=== PATIENT | male | born 1975 | race Caucasian/White ===

== ENCOUNTER 2018-12-31 18:31 | Observation (INO) | payer OTHER ==
[~2018-12-31] VITALS: Ht 182.9 cm; Wt 109.0 kg
--- NOTE | 2018-12-31 18:40 | ED.ADGEN ---
Past History Past Medical History: Alcoholism, Anxiety, Bipolar, Depression, GERD, Other Alcohol Use: Heavy Adult General Chief Complaint Chief Complaint ".. I was sober 7 to 8 months.. but I started drinking again.. I need to get some help... I did consume 1/2 gallon or so... of Volka today..." [facility] HPI Patient is a 43 year old male who presents with above hx and complaints of alcohol abuse. Pt. reportedly off alcohol 7-8 months before resumption of heavy use the last 7 days. Pt. has consumed 5th a day of Volka. Pt. Drank a 1/2 gallon Volka today. Patient has had intermittent hospitalizations for his alcohol abuse January 2017 at [facility] ,June 2017 at [facility], 2017 [facility], 04/02 at [facility] . Has follow at [facility]. Patient has had meds Abilify, trazadone, depakote, remeron, miralax. meloxicam, naltrxone- (currently on none of these meds). Pt. does not know of any trigger for his resumption of alcohol use. No hx of prior alcohol withdrawal seizures. Pt. requesting in pt. tx.. Follows with Dr. James Pelaez Review of Systems Review of Systems Constitutional: Denies fever or chills [] Eyes: Denies change in visual acuity, redness, or eye pain [] HENT: Denies nasal congestion or sore throat [] Respiratory: Denies cough or shortness of breath [] Cardiovascular: No additional information not addressed in [facility] [] GI: complaints of epigastric abdominal pain, nausea, vomiting. Denies, bloody stools or diarrhea [] : Denies dysuria or hematuria [] Musculoskeletal: Denies back pain or joint pain [] Integument: Denies rash or skin lesions [] Neurologic: Denies headache, focal weakness or sensory changes []Tremors. Endocrine: Denies polyuria or polydipsia [] All other systems were reviewed and found to be within normal limits, except as documented in this note. Family History Family History Currently deferred by patient Current Medications Current Medications Current Medications Medications (Trade) Dose Ordered Sig/Nathaniel Start Time Stop Time Status Last Admin Dose Admin Acetaminophen (Tylenol) 500 mg 1X ONCE 12/31/18 19:45 12/31/18 19:46 DC 12/31/18 19:33 500 MG Famotidine (Pepcid Vial) 20 mg STK-MED ONCE 12/31/18 20:53 12/31/18 20:54 DC Lactated Ringer's 1,000 ml @ 1,000 mls/hr 1X ONCE 12/31/18 21:00 12/31/18 21:59 DC 12/31/18 20:55 1,000 MLS/HR Magnesium Sulfate 50 ml @ 25 mls/hr 1X ONCE 12/31/18 20:00 12/31/18 21:59 DC 12/31/18 20:12 25 MLS/HR Multivitamins/ Minerals 10 ml/ Folic Acid 1 mg/ Thiamine HCl 100 mg/Lactated Ringer's 1,011.2 ml @ 1,011.2 mls/hr 1X ONCE 12/31/18 19:15 12/31/18 20:14 DC 12/31/18 19:15 1,011.2 MLS/HR Ondansetron HCl (Zofran) 8 mg 1X ONCE 12/31/18 21:00 12/31/18 21:01 DC 12/31/18 20:55 8 MG See nursing for home meds Allergies Allergies Allergies Coded Allergies Type Severity Reaction Last Updated Verified No Known Drug Allergies 12/31/18 No Physical Exam Physical Exam Constitutional: In acute emotional distress, intoxicated in appearance. [] HENT: Normocephalic, atraumatic, bilateral external ears normal, oropharynx moist, no oral exudates, nose normal. [] Eyes: PERRLA, EOMI, conjunctiva injected, no discharge. [] Neck: Normal range of motion, no tenderness, supple, no stridor. [] Cardiovascular: Tachycardia Heart rate regular rhythm, no murmur [] Lungs & Thorax: Bilateral breath sounds equal at apex on auscultation [] Abdomen: Bowel sounds normal, soft, mild epigastric tenderness, no masses, no pulsatile masses. Active nausea and vomiting. Skin: Warm, dry, no erythema, no rash. [] Back: No tenderness, no CVA tenderness. [] Extremities: No tenderness, no cyanosis, no clubbing, ROM intact, no edema. [] Neurologic: Alert and oriented X 3, normal motor function, normal sensory function, no focal deficits noted. []Ambulatory with wide gait. Tremors. Psychologic: Affect anxious, tearful, judgement appears to have insight to his addiction, mood depressed. [] Current Patient Data Vital Signs Vital Signs Date Time Temp Pulse Resp B/P (MAP) Pulse Ox O2 Delivery O2 Flow Rate FiO2 12/31/18 20:48 114 18 141/102 (115) 95 Room Air 12/31/18 18:31 98.9 Lab Results Laboratory Tests Test 12/31/18 18:44 12/31/18 19:00 White Blood Count 11.9 x10^3/uL (4.0-11.0) H Red Blood Count 5.55 x10^6/uL (4.30-5.70) Hemoglobin 18.2 g/dL (13.0-17.5) H Hematocrit 53.6 % (39.0-53.0) H Mean Corpuscular Volume 97 fL (79-100) Mean Corpuscular Hemoglobin 33 pg (25-35) Mean Corpuscular Hemoglobin Concent 34 g/dL (31-37) Red Cell Distribution Width 13.1 % (11.5-14.5) Platelet Count 189 x10^3/uL (140-400) Neutrophils (%) (Auto) 62 % (31-73) Lymphocytes (%) (Auto) 34 % (24-48) Monocytes (%) (Auto) 3 % (0-9) Eosinophils (%) (Auto) 0 % (0-3) Basophils (%) (Auto) 1 % (0-3) Neutrophils # (Auto) 7.4 x10^3uL (1.8-7.7) Lymphocytes # (Auto) 4.0 x10^3/uL (1.0-4.8) Monocytes # (Auto) 0.4 x10^3/uL (0.0-1.1) Eosinophils # (Auto) 0.0 x10^3/uL (0.0-0.7) Basophils # (Auto) 0.1 x10^3/uL (0.0-0.2) Prothrombin Time 11.0 SEC (9.4-11.4) Prothrombin Time INR 1.1 (0.9-1.1) PTT 28 SEC (23-33) Sodium Level 142 mmol/L (136-145) Potassium Level 4.0 mmol/L (3.5-5.1) Chloride Level 99 mmol/L (98-107) Carbon Dioxide Level 21 mmol/L (21-32) Anion Gap 22 (6-14) H Blood Urea Nitrogen 14 mg/dL (8-26) Creatinine 0.8 mg/dL (0.7-1.3) Estimated GFR (Cockcroft-Gault) 105.0 Glucose Level 93 mg/dL (70-99) Calcium Level 9.1 mg/dL (8.5-10.1) Magnesium Level 1.7 mg/dL (1.8-2.4) L Total Bilirubin 4.5 mg/dL (0.2-1.0) H Direct Bilirubin 0.9 mg/dL (0.0-0.2) H Aspartate Amino Transferase (AST) 43 U/L (15-37) H Alanine Aminotransferase (ALT) 51 U/L (16-63) Alkaline Phosphatase 71 U/L (46-116) Creatine Kinase 137 U/L (39-308) Troponin I Quantitative < 0.017 ng/mL (0-0.055) AP-Hnp-L-Type Natriuretic Peptide < 5 pg/mL (0-124) Total Protein 8.3 g/dL (6.4-8.2) H Albumin 4.9 g/dL (3.4-5.0) Lipase 176 U/L (73-393) Salicylates Level < 0.2 mg/dL (2.8-20.0) L Salicylate Last Dose Date Unknown Salicylate Last Dose Time Unknown Acetaminophen Level < 2 mcg/mL (10-30) L Acetaminophen Last Dose Date Unknown Acetaminophen Last Dose Time Unknown Valproic Acid Level < 3 mcg/mL (50-100) L Valproic Acid Last Dose Date 04/26/1111 Valproic Acid Last Dose Time 1111 Ethyl Alcohol Level 292 mg/dL (0-10) H Urine Collection Type Unknown Urine Color Shara Urine Clarity Clear Urine pH 5.5 Urine Specific [place] 1.025 Urine Protein >100 mg/dl (NEG-TRACE) Urine Glucose (UA) Neg mg/dL (NEG) Urine Ketones (Stick) >=160 mg/dL (NEG) Urine Blood Small (NEG) Urine Nitrite Neg (NEG) Urine Bilirubin Neg (NEG) Urine Urobilinogen Dipstick 1 mg/dL (0.2 mg/dL) Urine Leukocyte Esterase Neg (NEG) Urine RBC Occ /HPF (0-2) Urine WBC 0 /HPF (0-4) Urine Squamous Epithelial Cells Occ /LPF Urine Bacteria 0 /HPF (0-FEW) Urine Opiates Screen Neg (NEG) Urine Methadone Screen Neg (NEG) Urine Barbiturates Neg (NEG) Urine Phencyclidine Screen Neg (NEG) Urine Amphetamine/Methamphetamine Neg (NEG) Urine Benzodiazepines Screen Neg (NEG) Urine Cocaine Screen Neg (NEG) Urine Cannabinoids Screen Neg (NEG) Urine Ethyl Alcohol Pos (NEG) EKG EKG My interpretation of EKG shows a sinus tachycardia and 10 bpm. Left axis deviation. Mild fascicular block. No findings acute STEMI of contralateral changes.[] Radiology/Procedures Radiology/Procedures I interpretation chest x-ray shows no acute cardiopulmonary findings. No obvious free air under diaphragm. Course & Med Decision Making Course & Med Decision Making Pertinent Labs and Imaging studies reviewed. (See chart for details) Discussed presentation, testing and tx. plan with Dr. Hernadez. Pt. admitted to Dr. Hernadez, for further tx and evaluation. [] Final Impression Final Impression 1. Hx. ETOH Abuse[]=292 2. Dehydration 3. Hypomagnesium 1.7 4. Mild Elevation AST 45, Jax 4.5 5. Leukocytosis 11.9 6. Elevated Hgb 18.2 7. Nausea and Vomiting 8. Gastritis 9. ETOH Tremors Dragon Disclaimer Dragon Disclaimer This electronic medical record was generated, in whole or in part, using a voice recognition dictation system. Discharge Summary Visit Information Final Diagnosis Problems Medical Problems: (1) ETOH abuse Status: Acute Brief Hospital Course Allergies Allergies Coded Allergies Type Severity Reaction Last Updated Verified No Known Drug Allergies 12/31/18 No Vital Signs Vital Signs Date Time Temp Pulse Resp B/P (MAP) Pulse Ox O2 Delivery O2 Flow Rate FiO2 12/31/18 20:48 114 18 141/102 (115) 95 Room Air 12/31/18 18:31 98.9 Lab Results Laboratory Tests Test 12/31/18 18:44 12/31/18 19:00 White Blood Count 11.9 x10^3/uL (4.0-11.0) Red Blood Count 5.55 x10^6/uL (4.30-5.70) Hemoglobin 18.2 g/dL (13.0-17.5) Hematocrit 53.6 % (39.0-53.0) Mean Corpuscular Volume 97 fL (79-100) Mean Corpuscular Hemoglobin 33 pg (25-35) Mean Corpuscular Hemoglobin Concent 34 g/dL (31-37) Red Cell Distribution Width 13.1 % (11.5-14.5) Platelet Count 189 x10^3/uL (140-400) Neutrophils (%) (Auto) 62 % (31-73) Lymphocytes (%) (Auto) 34 % (24-48) Monocytes (%) (Auto) 3 % (0-9) Eosinophils (%) (Auto) 0 % (0-3) Basophils (%) (Auto) 1 % (0-3) Neutrophils # (Auto) 7.4 x10^3uL (1.8-7.7) Lymphocytes # (Auto) 4.0 x10^3/uL (1.0-4.8) Monocytes # (Auto) 0.4 x10^3/uL (0.0-1.1) Eosinophils # (Auto) 0.0 x10^3/uL (0.0-0.7) Basophils # (Auto) 0.1 x10^3/uL (0.0-0.2) Prothrombin Time 11.0 SEC (9.4-11.4) Prothromb Time International Ratio 1.1 (0.9-1.1) Activated Partial Thromboplast Time 28 SEC (23-33) Sodium Level 142 mmol/L (136-145) Potassium Level 4.0 mmol/L (3.5-5.1) Chloride Level 99 mmol/L (98-107) Carbon Dioxide Level 21 mmol/L (21-32) Anion Gap 22 (6-14) Blood Urea Nitrogen 14 mg/dL (8-26) Creatinine 0.8 mg/dL (0.7-1.3) Estimated GFR (Cockcroft-Gault) 105.0 Glucose Level 93 mg/dL (70-99) Calcium Level 9.1 mg/dL (8.5-10.1) Magnesium Level 1.7 mg/dL (1.8-2.4) Total Bilirubin 4.5 mg/dL (0.2-1.0) Direct Bilirubin 0.9 mg/dL (0.0-0.2) Aspartate Amino Transf (AST/SGOT) 43 U/L (15-37) Alanine Aminotransferase (ALT/SGPT) 51 U/L (16-63) Alkaline Phosphatase 71 U/L (46-116) Creatine Kinase 137 U/L (39-308) Troponin I Quantitative < 0.017 ng/mL (0-0.055) SV-Oyi-H-Type Natriuretic Peptide < 5 pg/mL (0-124) Total Protein 8.3 g/dL (6.4-8.2) Albumin 4.9 g/dL (3.4-5.0) Lipase 176 U/L (73-393) Salicylates Level < 0.2 mg/dL (2.8-20.0) Salicylate Last Dose Date Unknown Salicylate Last Dose Time Unknown Acetaminophen Level < 2 mcg/mL (10-30) Acetaminophen Last Dose Date Unknown Acetaminophen Last Dose Time Unknown Valproic Acid (Depakene) Level < 3 mcg/mL (50-100) Valproic Acid Last Dose Date 04/26/1111 Valproic Acid Last Dose Time 1111 Ethyl Alcohol Level 292 mg/dL (0-10) Urine Collection Type Unknown Urine Color Shara Urine Clarity Clear Urine pH 5.5 Urine Specific [place] 1.025 Urine Protein >100 mg/dl (NEG-TRACE) Urine Glucose (UA) Neg mg/dL (NEG) Urine Ketones (Stick) >=160 mg/dL (NEG) Urine Blood Small (NEG) Urine Nitrite Neg (NEG) Urine Bilirubin Neg (NEG) Urine Urobilinogen Dipstick 1 mg/dL (0.2 mg/dL) Urine Leukocyte Esterase Neg (NEG) Urine RBC Occ /HPF (0-2) Urine WBC 0 /HPF (0-4) Urine Squamous Epithelial Cells Occ /LPF Urine Bacteria 0 /HPF (0-FEW) Urine Opiates Screen Neg (NEG) Urine Methadone Screen Neg (NEG) Urine Barbiturates Neg (NEG) Urine Phencyclidine Screen Neg (NEG) Urine Amphetamine/Methamphetamine Neg (NEG) Urine Benzodiazepines Screen Neg (NEG) Urine Cocaine Screen Neg (NEG) Urine Cannabinoids Screen Neg (NEG) Urine Ethyl Alcohol Pos (NEG) Brief Hospital Course Mr. Swanson is a 43 old male who presented with alcohol abuse. Admitted to Dr. Hernadez Discharge Information Condition at Discharge: Improved Dischare Medications Current Medications Lactated Ringer's 1,000 ml @ 1,000 mls/hr Q1H IV Last administered on 12/31/18 19:15; Admin Dose 1,000 MLS/HR; Start 12/31/18 at 18:42; Stop 12/31/18 at 19:41; Status DC Multivitamins/ Minerals 10 ml/ Folic Acid 1 mg/ Thiamine HCl 100 mg/Lactated Ringer's 1,011.2 ml @ 1,011.2 mls/hr 1X ONCE IV Last administered on 19:15; Admin Dose 1,011.2 MLS/HR; Start 12/31/18 at 19:15; Stop 12/31/18 at 20:14; Status DC Ondansetron HCl (Zofran) 8 mg 1X ONCE IV Last administered on 12/31/18at 19:32; Admin Dose 8 MG; Start 12/31/18 at 19:45; Stop 12/31/18 at 19:46; Status DC Acetaminophen (Tylenol) 500 mg 1X ONCE PO Last administered on 12/31/18at 19:33; Admin Dose 500 MG; Start 12/31/18 at 19:45; Stop 12/31/18 at 19:46; Status DC Magnesium Sulfate 50 ml @ 25 mls/hr 1X ONCE IV Last administered on 12/31/18at 20:12; Admin Dose 25 MLS/HR; Start 12/31/18 at 20:00; Stop 12/31/18 at 21:59; Status DC Ondansetron HCl (Zofran) 8 mg 1X ONCE IV Last administered on 12/31/18at 20:55; Admin Dose 8 MG; Start 12/31/18 at 21:00; Stop 12/31/18 at 21:01; Status DC Famotidine (Pepcid Vial) 20 mg 1X ONCE IVP Last administered on 12/31/18 20:55; Admin Dose 20 MG; Start 12/31/18 at 21:00; Stop 12/31/18 at 21:01; Status DC Lactated Ringer's 1,000 ml @ 1,000 mls/hr 1X ONCE IV Last administered on 12/31/18at 20:55; Admin Dose 1,000 MLS/HR; Start 12/31/18 at 21:00; Stop 12/31/18 at 21:59; Status DC Famotidine (Pepcid Vial) 20 mg STK-MED ONCE .ROUTE ; Start 12/31/18 at 20:53; Stop 12/31/18 at 20:54; Status DC Dragon Disclaimer This chart was dictated in whole or in part using Voice Recognition software in a busy, high-work load, and often noisy Emergency Department environment. It may contain unintended and wholly unrecognized errors or omissions. LING LAWRENCE MD Dec 31, 2018 18:40
[2018-12-31] MEDS ORDERED: IV RINGERS SOLUTION,LACTATED 1,000 ML IV SCH (18:42)
[2018-12-31 19:08] LABS: WHITE BLOOD COUNT 11.9 x10^3/uL (4.0-11.0)
[2018-12-31 19:09] LABS: BASO # 0.1 x10^3/uL (0.0-0.2); BASO % 1 % (0-3); EOS % 0 % (0-3); HEMATOCRIT 53.6 % (39.0-53.0); HEMOGLOBIN 18.2 g/dL (13.0-17.5); LYMPH % 34 % (24-48); MEAN CORPUSCULAR HEMOGLOBIN 33 pg (25-35); MEAN CORPUSCULAR HGB CONC 34 g/dL (31-37); MEAN CORPUSCULAR VOLUME 97 fL (79-100); MONO # 0.4 x10^3/uL (0.0-1.1); MONO % 3 % (0-9); NEUT # 7.4 x10^3uL (1.8-7.7); NEUT % 62 % (31-73); PLATELET COUNT 189 x10^3/uL (140-400); RED BLOOD COUNT 5.55 x10^6/uL (4.30-5.70); RED CELL DISTRIBUTION WIDTH 13.1 % (11.5-14.5)
[2018-12-31] MEDS ORDERED: MVI, ADULT NO.4 WITH VIT K 10 ML, FOLIC ACID SYRINGE for ER 1 MG, THIAMINE INJ 100 MG i... IV ONE ×4 (19:15)
[2018-12-31 19:38] LABS: ACETAMIN < 2 mcg/mL (10-30); ETHANOL 292 mg/dL (0-10); SALIC < 0.2 mg/dL (2.8-20.0)
[2018-12-31 19:43] LABS: AMPHETAMINE/METHAMPHETAMINE NEG (NEG); BARBITURATES NEG (NEG); BENZODIAZEPINES NEG (NEG); CANNABINOIDS NEG (NEG); COCAINE NEG (NEG); METHADONE NEG (NEG); OPIATES NEG (NEG); PHENCYCLIDINE NEG (NEG)
[2018-12-31] MEDS ORDERED: ONDANSETRON PF 4 MG/2 ML VIAL. IV ONE ×2 (19:45→21:00)
[2018-12-31] MEDS ORDERED: ACETAMINOPHEN 500 MG TABLET PO ONE (19:45)
[2018-12-31 19:48] LABS: BILIRUBIN,URINE NEG (NEG); CLARITY,URINE CLEAR; COLOR,URINE AMBER; GLUCOSE,URINE NEG (NEG)
[2018-12-31 19:49] LABS: ALBUMIN 4.9 g/dL (3.4-5.0); ALK PHOS 71 U/L (46-116); ALT (SGPT) 51 U/L (16-63); AST (SGOT) 43 U/L (15-37); BLOOD UREA NITROGEN 14 mg/dL (8-26); CALCIUM 9.1 mg/dL (8.5-10.1); GLUCOSE 93 mg/dL (70-99); SODIUM 142 mmol/L (136-145); TOTAL BILIRUBIN 4.5 mg/dL (0.2-1.0)
[2018-12-31 19:49] LABS: BACTERIA,URINE 0 /HPF (0-FEW); NITRITE,URINE NEG (NEG); RBC,URINE OCC /HPF (0-2); SQUAMOUS EPITHELIAL CELL,UR OCC /LPF; UROBILINOGEN,URINE 1 mg/dL (0.2 mg/dL); WBC,URINE 0 /HPF (0-4)
[2018-12-31 19:50] LABS: ANION GAP 22 (6-14); CARBON DIOXIDE 21 mmol/L (21-32); CHLORIDE 99 mmol/L (98-107); DIRECT BILIRUBIN 0.9 mg/dL (0.0-0.2)
[2018-12-31 19:51] LABS: LIPASE 176 U/L (73-393); MAGNESIUM 1.7 mg/dL (1.8-2.4); VAL ACID < 3 mcg/mL (50-100)
[2018-12-31] MEDS ORDERED: MAGNESIUM SULFATE 2GM 50 ML IV ONE (20:00)
[2018-12-31 20:15] LABS: CREATININE 0.8 mg/dL (0.7-1.3); TOTAL PROTEIN 8.3 g/dL (6.4-8.2)
[2018-12-31] MEDS ORDERED: FAMOTIDINE 20 MG/2 ML VIAL ONE (20:53)
[2018-12-31] MEDS ORDERED: IV RINGERS SOLUTION,LACTATED 1,000 ML IV ONE (21:00)
[2018-12-31] MEDS ORDERED: FAMOTIDINE 20 MG/2 ML VIAL IVP ONE (21:00)
[2018-12-31] MEDS ORDERED: PROCHLORPERAZINE 10 MG/2 ML VIAL. IV PRN (21:15)
[2018-12-31] MEDS ORDERED: diphenhydrAMINE 50 MG/ML VIAL IV PRN (21:15)
[2018-12-31] MEDS: IV RINGERS SOLUTION,LACTATED 1,000 ML IV SCH (21:15)
[2018-12-31] MEDS ORDERED: ACETAMINOPHEN 325 MG TABLET PO PRN (21:15)
[2018-12-31] MEDS ORDERED: diphenhydrAMINE 50 MG/ML VIAL IVP ONE (21:15)
[2018-12-31 22:19] VITALS: BP 136/83
[2018-12-31] MEDS ORDERED: VITA0.4T4 PO (22:49)
[2018-12-31] MEDS ORDERED: POTA500T5 PO (22:49)
[2018-12-31] MEDS ORDERED: DICL75TA PO (22:49)
[2018-12-31] MEDS ORDERED: HYDR25TA PO (22:49)
[2018-12-31] MEDS ORDERED: TRAZ-86 PO ×2 (22:49)
[2018-12-31] MEDS ORDERED: FOLI1TAB16 PO (22:49)
[2018-12-31] MEDS ORDERED: NALT50TA PO (22:49)
--- NOTE | 2019-01-01 01:33 | RAD ---
AP portable chest radiograph 12/31/2018 Clinical History: Alcohol intoxication. An AP erect portable digital radiograph of the chest was obtained. No previous studies are available for comparison. The cardiac and mediastinal silhouettes are within normal limits in size and configuration. No acute pulmonary infiltrate is seen. No pleural effusion or pneumothorax is noted. The osseous structures are grossly intact. IMPRESSION: No acute abnormality is seen. Electronically signed by: Stewart Hines MD (01/01/2019 1:29 AM) [facility]
[2019-01-01] MEDS: IV RINGERS SOLUTION,LACTATED 1,000 ML IV SCH ×3 (03:18→09:16)
[2019-01-01 05:12] VITALS: BP 118/68
[2019-01-01 06:20] LABS: CALCIUM 8.6 mg/dL (8.5-10.1); CREATININE 0.7 mg/dL (0.7-1.3); GFR 122.5
[2019-01-01 06:21] LABS: POTASSIUM 3.7 mmol/L (3.5-5.1)
[2019-01-01 06:25] LABS: BASO # 0.1 x10^3/uL (0.0-0.2); BASO % 1 % (0-3); EOS % 1 % (0-3); HEMATOCRIT 43.5 % (39.0-53.0); HEMOGLOBIN 14.9 g/dL (13.0-17.5); LYMPH % 32 % (24-48); MEAN CORPUSCULAR HEMOGLOBIN 33 pg (25-35); MEAN CORPUSCULAR HGB CONC 34 g/dL (31-37); MEAN CORPUSCULAR VOLUME 96 fL (79-100); MONO # 0.4 x10^3/uL (0.0-1.1); MONO % 6 % (0-9); NEUT # 3.9 x10^3uL (1.8-7.7); NEUT % 61 % (31-73); PLATELET COUNT 106 x10^3/uL (140-400); RED BLOOD COUNT 4.53 x10^6/uL (4.30-5.70); WHITE BLOOD COUNT 6.4 x10^3/uL (4.0-11.0)
--- NOTE | 2019-01-01 08:46 | HP ---
ADMIT DATE: 12/31/2018 ADMISSION HISTORY AND PHYSICAL ATTENDING PHYSICIAN: Dr. Richards. CHIEF COMPLAINT: Alcohol use. HISTORY OF PRESENT ILLNESS: This is a 43-year-old gentleman with a longstanding history of heavy alcohol use. He has been sober for 8 months. He started consuming a fifth of vodka a day. He has intermittent hospitalization with alcohol abuse in January at [facility] at [place], [place], and [facility] in [place], [place]. He follows up at [facility]. He is requesting a rehab, but was under the impression that this is a detoxification unit. He follows with Dr. James Pelaez. He has no DUIs and no previous alcohol withdrawal seizures. PAST MEDICAL HISTORY: Significant for bipolar disorder, depression, gastroesophageal reflux disease, and chronic alcoholism. FAMILY HISTORY: Noncontributory. MEDICATIONS: Includes Tylenol and Desyrel. ALLERGIES: He has no recorded drug allergies. SOCIAL HISTORY: Alcohol use is noted. He does not smoke. REVIEW OF SYSTEMS: Significant for chronic alcoholism, underlying depression. He states he has not had any DUIs. He has been to numerous alcohol rehab programs without any success as he continues to drink. He downplays his depression, stating that he is not aware of it. All other systems reviewed and determined to be negative. There are no recent seizures or hematemesis. PHYSICAL EXAMINATION: GENERAL: When I saw him, this is a pleasant, well-developed gentleman. INITIAL VITAL SIGNS: In the ED showed a blood pressure of 118/68, pulse is 83 and regular. He was afebrile. HEENT: Head is without trauma. Pupils are reactive. Sclerae nonicteric. Oropharynx is clear. NECK: Supple. No bruits identified. LUNGS: Otherwise clear. CARDIOVASCULAR: Showed regular heart tones. No gallops. Peripheral pulses are palpable and full. ABDOMEN: Obese, protuberant. No organomegaly. Bowel sounds are normoactive. EXTREMITIES: Show no cyanosis or edema. NEUROLOGIC: Focally intact. No tremors, no impending seizures. Speech is fluent. PERTINENT LABORATORY DATA: His hemoglobin was 18.2 g/dL in a hemoconcentrated state. With hydration, it came down to 14.9 g/dL. The MCV is 97. White count is normal. Chemistry panel shows stable BUN and creatinine and electrolytes. IMPRESSION: 1. A 43-year-old gentleman with acute alcohol intoxication. 2. Chronic alcoholism. 3. Underlying depression. 4. High recidivism rate. PLAN: 1. Observation status. 2. IV hydration for polycythemia. 3. Ativan p.r.n. 4. I will have casework supervisor talk with him in the morning. MEHNAZ RICHARDS MD DR: NIRAJ/cody JOB#: [id number] / [id number]
--- NOTE | 2019-01-01 08:52 | DS ---
DATE OF DISCHARGE: 01/01/2019 FINAL DISCHARGE DIAGNOSES: 1. Acute alcohol intoxication. 2. Chronic alcoholism. 3. Admission alcohol level 292 mg/dL. 4. Underlying depression. 5. Alcoholic gastritis. HISTORY OF PRESENT ILLNESS: This 43-year-old gentleman has chronic alcoholism. He has been to multiple programs in the past with a high recidivism rate. He continues to drink. His blood alcohol level was 292. He was under the impression this is a detox unit. I explained to him that we are a [facility]. In any event, he was admitted for observation and for monitoring of DTs. He has not had DTs in the past. PHYSICAL EXAMINATION: Please see the dictated note. PERTINENT LABORATORY AND X-RAY STUDIES: Chemistry panel unremarkable. Hemoglobin was elevated at 18 g due to hemoconcentration. With hydration, it came down to 14.5 g/dL. Blood alcohol level noted was 292 on admission. COURSE IN THE HOSPITAL: He was admitted. We monitored for signs of seizures. Hydration was accomplished and repeat CBCs improved. He responded well to Ativan. On the next day, he was stable. He was ready for discharge. Our dependency case manager discussed with him, if he is sincere about wanting help, we provided contacts for him to find a program. I wrote him a script for Ativan 1 mg b.i.d. He should follow up with his regular PCP. He will continue his Desyrel as prescribed. He was discharged from our hospital in stable condition with explicit instructions and followup care. MEHNAZ RICHARDS MD DR: NIRAJ/cody JOB#: [id number] / [id number]
[2019-01-01] MEDS ORDERED: MVI, ADULT NO.4 WITH VIT K 10 ML, FOLIC ACID SYRINGE for ER 1 MG, THIAMINE INJ 100 MG i... IV SCH ×4 (09:00)
[2019-01-01] MEDS ORDERED: SUCRALFATE 1 GM TABLET. PO SCH (09:00)
[2019-01-01] MEDS ORDERED: FAMOTIDINE 20 MG/2 ML VIAL IVP SCH (09:00)
[2019-01-01 10:38] VITALS: BP 132/62
[2019-01-01] MEDS ORDERED: ONDANSETRON ODT 4 MG TAB.RAPDIS PO ONE (12:00)
--- NOTE | 2019-01-02 06:49 | EKG ---
[address] [address] Test Date: 2018-12-31 Test Time: 18:56:05 Pat Name: DAIN EAST Department: Room: Gender: M Retail Marketing Specialist: BRENDA : 1975 Requested By: LING LAWERNCE Order Number: [id number] Reading MD: Measurements Intervals [place] Rate: 110 P: -30 DC: 140 QRS: -30 QRSD: 98 T: -3 QT: 330 QTc: 452 Interpretive Statements SINUS TACHYCARDIA ABNORMAL LEFT AXIS DEVIATION LEFT ANTERIOR FASCICULAR BLOCK INCOMPLETE RIGHT BUNDLE BRANCH BLOCK QRS(T) CONTOUR ABNORMALITY CONSIDER ANTEROSEPTAL MYOCARDIAL DAMAGE ABNORMAL ECG RI6.01 No previous ECG available for comparison
== END 2019-01-01 12:36 | disposition home or self-care (01) ==
LOC: ER 18:31 → 1 SOUTH 21:00 → INTOOBSV 21:00
PROVIDERS: ADMIT Hospitalist; ATTEND Hospitalist
DX: F10.231 Alcohol dependence with withdrawal delirium (principal); F41.9 Anxiety disorder, unspecified; F31.9 Bipolar disorder, unspecified; F32.9 Major depressive disorder, single episode, unspecified; K21.9 Gastro-esophageal reflux disease without esophagitis; E86.0 Dehydration; E83.42 Hypomagnesemia; D72.829 Elevated white blood cell count, unspecified; R11.2 Nausea with vomiting, unspecified; K29.70 Gastritis, unspecified, without bleeding; Y90.8 Blood alcohol level of 240 mg/100 ml or more; K29.20 Alcoholic gastritis without bleeding
CPT/HCPCS: 36415; 71045; 80048; 80076; 80164; 80307; 80329; 81001; 82550; 83690; 83735; 83880; 84443; 84484; 85025; 85610; 85730; 93005; 94640; 96361; 96365; 96368; 96375; 96376; 99284; G0238; G0378; G0480; J0780; J1200; J2060; J2405; J3475; J3490; J7120; Q0162; G0379; 82003; 99285-25